=== PATIENT | female | born 1975 | race Caucasian/White ===

== ENCOUNTER 2021-01-01 06:17 | Emergency (ER) | payer SELFPAY ==
[~2021-01-01] VITALS: Ht 157.5 cm; Wt 67.1 kg
[2021-01-01] MEDS ORDERED: SODIUM CHLORIDE 0.9% 1000ML 1,000 ML IV STA (06:41)
[2021-01-01] MEDS ORDERED: ONDANSETRON HCL INJ 2MG/ML 2ML 2 MG/ML VIAL IV ONE (06:45)
[2021-01-01] MEDS ORDERED: OMEPRAZOLE40 MG PO (06:51)
[2021-01-01] MEDS ORDERED: ONDANSETRON HCL INJ 2MG/ML 2ML 2 MG/ML VIAL ONE (07:04)
[2021-01-01] MEDS ORDERED: SODIUM CHLORIDE 0.9% 1000ML 1,000 ML ONE (07:04)
== END 2021-01-01 08:00 | disposition home or self-care (01) ==
LOC: FSED 06:39
DX: R10.9 Unspecified abdominal pain (principal); K29.71 Gastritis, unspecified, with bleeding
CPT/HCPCS: 99283; C9113; J2405; J7030